=== PATIENT | female | born 1990 | race Caucasian/White ===

== ENCOUNTER 2023-02-07 14:10 | Outpatient (REF) | payer MEDICAID, SELFPAY ==
[2023-02-07 16:11] LABS: MANUAL DIFF FLAG NO
[2023-02-07 16:22] LABS: Basophils Percent Auto 0.6 % (0-2); Eosinophils Absolute Auto 0.2 X10*3/uL (0.0-0.4); Hematocrit 35.7 % (37.0-47.0); Hemoglobin 11.6 g/dl (12.0-16.0); Imm Gran Abs Auto 0.02 X10*3/uL (0.00-0.03); Imm Gran Pct Auto 0.3 % (0.0-0.4); Lymphocytes Absolute Auto 2.2 X10*3/uL (1.2-4.9); Lymphocytes Percent Auto 31.8 % (20-40); Mean Corpuscular HGB Conc 32.5 g/dl (31.0-35.0); Mean Corpuscular Hemoglobin 27.8 pg (27.0-33.0); Mean Corpuscular Volume 85.6 fL (80.0-98.0); Mean Platelet Volume 11.4 fL (9.4-12.3); Monocytes Absolute Auto 0.6 X10*3/uL (0.1-1.2); Monocytes Percent Auto 8.6 % (2-11); Neutrophils Absolute Auto 3.9 x10*3/uL (2.0-8.3); Neutrophils Percent Auto 55.7 % (45-73); Platelet Count 289 X10*3/uL (160-400); Red Blood Count 4.17 X10*6/uL (4.20-5.50); Red Cell Distribution Width 12.8 % (11.0-16.0); White Blood Count 6.9 X10*3/uL (4.8-10.8)
[2023-02-07 17:07] LABS: Estimated Average Glucose 100 mg/dL; Hemoglobin A1c % 5.1 %
[2023-02-07 17:22] LABS: Alanine Aminotransferase 21 U/L (0-31); Albumin Level 4.1 g/dL (3.5-5.0); Alkaline Phosphatase 52 U/L (39-117); Anion Gap 16 (12-20); Aspartate Amino Transferase 17 U/L (5-31); Bilirubin Direct 0.1 mg/dL (0.0-0.5); Bilirubin Total 0.3 mg/dL (0.0-1.0); Blood Urea Nitrogen 17 mg/dL (9-16); Calcium 9.1 mg/dL (8.4-10.2); Carbon Dioxide 22 mmol/L (22-29); Chloride 105 mmol/L (96-108); Cholesterol 234 mg/dL; Estimated Glomerular Filt Rate > 60; Glucose Random 87 mg/dL (60-115); HDL Cholesterol 46 mg/dL; LDL Cholesterol Calculated 148 mg/dl; Potassium 3.6 mmol/L (3.3-5.1); Sodium 139 mmol/L (135-145); Total Protein 7.7 g/dL (6.5-8.0); Triglycerides 202 mg/dL
[2023-02-08 08:52] LABS: ~Hepatitis C Antibody Nonreactive (Nonreactive)
[2023-02-08 08:54] LABS: HIV AB/AG Nonreactive (Nonreactive); HIV Num 1 0.05 S/CO (0.00-0.99)
[2023-02-09 06:24] LABS: HCG Tumor Marker <5 mIU/mL
== END 2023-02-07 14:11 | disposition home or self-care (01) ==
LOC: HO.HHCL 14:10
PROVIDERS: Visit Provider Internal Medicine
DX: Z00.00 Encounter for general adult medical examination without abnormal findings (principal); Z11.4 Encounter for screening for human immunodeficiency virus [HIV]; R11.0 Nausea
CPT/HCPCS: 36415; 80048; 80061; 80076; 83036; 84702; 85025; 86803; 87389

== ENCOUNTER 2023-03-21 12:54 | Outpatient (REF) | payer MEDICAID, SELFPAY ==
--- NOTE | ~2023-03-21 | US_ITS ---
EXAMINATION: US DIAGNOSTIC ULTRASOUND BREAST, RIGHT CLINICAL INFORMATION: 32-year-old female patient, , complaining of tiny skin lesion right breast measuring 5 mm x 1 month at the 9:00 axis, 7 cm from the nipple.. COMPARISON: None available. TECHNIQUE: Ultrasound of the breast is performed with real-time lara scale imaging and color Doppler. Attention was given to the 9:00 axis in the region of patient concern. FINDINGS: There is no focal suspicious finding. There is no solid mass, architectural abnormality, duct ectasia, or edema in the soft tissue planes. There is a tiny 4 mm focus of hypoattenuation within the skin at the 9:00 axis, 7 cm from the nipple. This is consistent with a dermal abnormality. Results were discussed with the patient at time of visit. US/US breast RT limited mamm only IMPRESSION: No findings suspicious for malignancy right breast. Dermal lesion right skin 9:00 axis correlating to right breast lesion of concern. Recommend clinical management. ASSESSMENT: BI-RADS 2: Benign RECOMMENDATION: 1. Patient should be managed based on the clinical impression. 2. Otherwise, routine annual screening mammography at age 39.
== END 2023-03-21 12:55 | disposition home or self-care (01) ==
LOC: HO.MAMMO 12:54
PROVIDERS: PCP Internal Medicine; Visit Provider Internal Medicine
DX: N64.9 Disorder of breast, unspecified (principal)
CPT/HCPCS: 76642

== ENCOUNTER → 2023-03-21 13:30 | Outpatient (BNV) | payer MEDICAID, SELFPAY | PROVIDERS: PCP Internal Medicine; Visit Provider Radiology Diagnostic Radiology | DX: N64.59 Other signs and symptoms in breast (principal); Z33.1 Pregnant state, incidental | CPT/HCPCS: 76642 ==

== ENCOUNTER 2024-04-24 14:57 | Outpatient (REF) | payer MEDICAID, SELFPAY ==
[2024-04-24 16:15] LABS: MANUAL DIFF FLAG NO
[2024-04-24 16:18] LABS: Basophils Percent Auto 0.6 % (0-2); Eosinophils Absolute Auto 0.3 X10*3/uL (0.0-0.4); Eosinophils Percent Auto 4.1 % (0-4); Hematocrit 38.5 % (37.0-47.0); Hemoglobin 13.2 g/dl (12.0-16.0); Imm Gran Abs Auto 0.02 X10*3/uL (0.00-0.03); Imm Gran Pct Auto 0.3 % (0.0-0.4); Lymphocytes Percent Auto 28.1 % (20-40); Mean Corpuscular HGB Conc 34.3 g/dl (31.0-35.0); Mean Corpuscular Hemoglobin 29.1 pg (27.0-33.0); Mean Corpuscular Volume 84.8 fL (80.0-98.0); Mean Platelet Volume 10.9 fL (9.4-12.3); Monocytes Absolute Auto 0.5 X10*3/uL (0.1-1.2); Monocytes Percent Auto 7.3 % (2-11); Neutrophils Absolute Auto 4.2 x10*3/uL (2.0-8.3); Neutrophils Percent Auto 59.6 % (45-73); Platelet Count 353 X10*3/uL (160-400); Red Blood Count 4.54 X10*6/uL (4.20-5.50); Red Cell Distribution Width 11.9 % (11.0-16.0)
[2024-04-24 16:30] LABS: Estimated Average Glucose 100 mg/dL; Hemoglobin A1C 107.6474 umol/L; Hemoglobin A1c % 5.1 % (<6.0); Total Hemoglobin (HGBA1C) 3357.2263 umol/L
[2024-04-24 16:37] LABS: Alanine Aminotransferase 27 U/L (0-31); Alkaline Phosphatase 68 U/L (39-117); Anion Gap 10 (12-20); Aspartate Amino Transferase 26 U/L (5-31); Bilirubin Total 0.5 mg/dL (0.0-1.0); Blood Urea Nitrogen 12 mg/dL (9-16); Calcium 9.7 mg/dL (8.4-10.2); Carbon Dioxide 28 mmol/L (22-29); Chloride 105 mmol/L (96-108); Cholesterol 266 mg/dL (<200); Estimated Glomerular Filt Rate > 60; Glucose Random 77 mg/dL (60-115); HDL Cholesterol 54 mg/dL (>40); LDL Cholesterol Calculated 136 mg/dL (<100); Potassium 3.4 mmol/L (3.3-5.1); Sodium 140 mmol/L (135-145); Total Protein 7.7 g/dL (6.5-8.0); Triglycerides 382 mg/dL (<150)
[2024-04-24 16:55] LABS: TSH reflex Free T4 0.82 uIU/mL (0.32-4.0); Vitamin D 25-OH Total 23.4 ng/mL (>30)
[2024-04-25 04:20] LABS: HIV AB/AG Nonreactive (Nonreactive); HIV Num 1 0.05 S/CO (0.00-0.99); ~HepC Num1 0.14 S/CO (0.00-0.79); ~Hepatitis C Antibody Nonreactive (Nonreactive)
== END 2024-04-24 14:58 | disposition home or self-care (01) ==
LOC: HO.HHCL 14:57
PROVIDERS: Visit Provider Internal Medicine
DX: Z00.00 Encounter for general adult medical examination without abnormal findings (principal)
CPT/HCPCS: 36415; 80053; 80061; 82306; 83036; 84443; 85025; 86803; 87389

== ENCOUNTER 2024-05-04 11:05 | Outpatient (REF) | payer MEDICAID, SELFPAY | END 2024-05-04 11:06 | disposition home or self-care (01) | LOC: HO.US 11:05 | PROVIDERS: PCP Internal Medicine; Visit Provider Internal Medicine | DX: R13.10 Dysphagia, unspecified (principal); E04.9 Nontoxic goiter, unspecified | CPT/HCPCS: 76536 ==

== ENCOUNTER 2025-05-10 11:16 | Outpatient (REF) | payer MEDICAID, SELFPAY ==
--- OUTSIDE RECORDS SUMMARY | 2025-05-07 14:00 | XMS_ITS | Encounter Summary ---
Author Organization [employer] [facility] Address [address] [place] [phone] Care Team Providers Care Fireman Helper Name Role Phone Tiffanie Smart MD Primary Care Provide r Reason for Referral * Imaging (Routine) - Authorized Specialty Diagnoses / Procedures Referred By Contac t Referred To Contact Radiology Diagnoses Pelvic pain Procedures US Pelvis Transvaginal Tiffanie Smart MD [address] [place] [phone] Phone: tel: fax: [address] Phone: tel: fax: Referral ID Status Reason Start Date Expiration Date V isits Requested Visits Authorized [id number] Authorized 05/07/2025 05/07/2026 1 1 * Imaging (Routine) - Authorized Specialty Diagnoses / Procedures Referred By Contac t Referred To Contact Radiology Diagnoses Pelvic pain Procedures Us Pelvis complete Tiffanie Smart MD [address] [place] [address] Phone: tel: fax: [address] Phone: tel: fax: Referral ID Status Reason Start Date Expiration Date V isits Requested Visits Authorized [id number] Authorized 05/07/2025 05/07/2026 1 1 * Consultation (Routine) - Authorized Specialty Diagnoses / Procedures Referred By Oksana ayoub Referred To Contact Urology Diagnoses Stress incontinence Tiffanie Smart MD [address] [place] [address] Phone: tel: fax: [facility] [address] [place], [place] Phone: tel: fax: Referral ID Status Reason Start Date Expiration Date Visits Requested Visits Authorized [id number] Authorized Specialty Services Required 05/07/2026 6 6 Encounter Details Date Type Department Care Team (Late st Contact Info) Description 05/07/2025 2:00 PM EDT Office Visit [facility] [address] [place] [address] Tiffanie Smart MD [address] [place], [place] [phone] Hair loss (Primary Dx); Stress incontinence; Encounter for preventive care; Pelvic pain Social History Tobacco Use Types Packs/Day Years Used Date Smoking Tobacco: Never Passive Smoke Exposure: Never Smokeless Tobacco: Never Alcohol Use Standard Drinks/Week Comments Never 0 (1 standard drink = 0.6 oz pur e alcohol) Depression Answer Date Recorded Patient Health Questionnaire-9 Score 0 05/07/2025 Patient Health Questionnaire-9 Score 0 05/07/2025 Last PHQ-9: Questionnaire Data Not on file 1 Housing Stability Answer Date Recorded What is your housing situation today? I have dario mcelroy 04/30/[address] you li ve. Do you have problems with any of the following? None of the above 04/30/2025 Food Insecurity Answer Date Recorded Within the past 12 months, y ou worried that your food would run out before you got money to buy more: Never True 04/30/2025 Within the past 12 months,th e food you bought just didn't last and you didn't have enough money to get more: Never True Transportation Answer Date Recorded In the past 12 months, has l ack of transportation kept you from medical appts, meetings, work or from getting things needed for daily living? No 04/30/2025 Utilities Answer Date Recorded In the past 12 months, has t he electric, gas, oil or water company threatened to shut off services in your home? No 04/30/2025 Depression Answer Date Recorded Patient Health Questionnaire-2 Score 0 05/07/2025 Internet Access Answer Date Recorded Internet Access Q1 Yes 04/30/2025 Internet Access Q2 Not on file 04/30/2025 Comments No Sex and Gender Information Value Date Recorded Sex Assigned at Female 05/14/2022 10:15 AM EDT Legal Sex Female 10:15 AM EDT Gender Identity Female 05/14/2022 10:15 AM EDT Sexual Orientation Straight 05/14/2022 10 :15 AM EDT documented as of this encounter Last Filed Vital Signs Vital Sign Reading Time Taken Comments Blood Pressure 116/80 05/07/2025 1:56 PM EDT Pulse 73 05/07/2025 1:56 PM EDT Temperature 34.5 C (94.1 F) 05/07/2025 1:56 PM EDT Respiratory Rate 22 05/07/2025 1:56 PM EDT Oxygen Saturation 93% 05/07/2025 1:56 PM EDT Inhaled Oxygen Concentration - - Weight 67.1 kg (148 lb) 05/07/2025 1:56 PM EDT Height 162.6 cm (5' 4 ) 05/07/2025 1:56 PM EDT Body Mass Index 25.4 05/07/2025 1:56 PM EDT documented in this encounter Functional Status * Over the past 2 weeks, how often have you been bothered by any of the following problems? Question Answer Date of Assessment Author Patient Health Questionnaire-2 Score 0 04/15 2:57 PM EDT Shana Sanchez MA * Little interest or pleasure in doing things Answer Date of Assessment Author Not at all 05/07/2025 2:57 PM EDT Ashwin Sanchez ra, [place] * Feeling down, depressed, or hopeless Answer Date of Assessment Author Not at all 05/07/2025 2:57 PM EDT Ashwin Sanchez ra, [place] * Trouble falling or staying asleep, or sleeping too much Answer Date of Assessment Author Not at all 05/07/2025 2:57 PM EDT Ashwin Sanchez ra, [place] * Feeling tired or having little energy Answer Date of Assessment Author Not at all 05/07/2025 2:57 PM EDT Ashwin Sanchez ra, [place] * Poor appetite or overeating Answer Date of Assessment Author Not at all 05/07/2025 2:57 PM EDT Ashwin Sanchez ra, [place] * Feeling bad about yourself - or that you are a failure or have let yourself or your family down Answer Date of Assessment Author Not at all 05/07/2025 2:57 PM EDT Ashwin Sanchez ra, [place] * Trouble concentrating on things, such as reading the newspaper or watching television Answer Date of Assessment Author Not at all 05/07/2025 2:57 PM EDT Ashwin Sanchez ra, [place] * Moving or speaking so slowly that other people could have noticed? Or the opposite - being so fidgety or restless that you have been moving around a lot more than usual. Answer Date of Assessment Author Not at all 05/07/2025 2:57 PM EDT Ashwin Sanchez ra, [place] * Thoughts that you would be better off or hurting yourself in some way Answer Date of Assessment Author Not at all 05/07/2025 2:57 PM EDT Ashwin Sanchez ra, [place] * Patient Health Questionnaire-9 Score Answer Date of Assessment Author 0 05/07/2025 2:57 PM EDT Ashwin Sanchez ra, [place] * Over the last 2 weeks, how often have you been bothered by any of the following problems? Question Answer Date of Assessment Author Feeling nervous, anxious, or on edge 0 04/15 2:58 PM EDT Shana Sanchez MA Not being able to stop or co ntrol worrying 0 05/07/2025 2:58 PM EDT Shana Sanchez MA Worrying too much about diff erent things 0 05/07/2025 2:58 PM EDT Shana Sanchez MA Trouble relaxing 0 05/07/2025 2:58 PM EDT H Shana ma MA Being so restless that it is hard to sit still 0 05/07/2025 2:58 PM EDT Shana Sanchez MA Becoming easily annoyed or irritable 0 04/15 2:58 PM EDT Shana Sanchez MA Feeling afraid as if somethi ng awful might happen 0 05/07/2025 2:58 PM EDT Shana Sanchez MA KARLOS-7 Total Score 0 05/07/2025 2:58 PM EDT Shana Sanchez MA documented as of this encounter Progress Notes * Tiffanie Johnson MD - 05/07/2025 2:00 PM EDT SUBJECTIVE: Kavon Wild is a 35 y.o. year old female who presents for Physical . Occupation:at home Lives with:kids and partner Social Hx: denies drinking EtOH, denies smoking cigarettes and denies recreational drug use. Diet:regular Exercise:sedentary LMP:04/16/25 Pap Smear:due on 04/19/2028 Hospitalizations/Surgeries: tubal ligation 11/2023, appendectomy, liposuction Eye Care:up to date Dental Care:up to date PMHx:on chart Immunizations: Reviewed Acute Concerns: Stress incontinence Hair loss Kavon Wild, 35 years Stress Urinary Incontinence - Reports involuntary urine leakage when sneezing, coughing, laughing, or exerting force - Current symptoms present at time of encounter - No mention of prior treatment, but purchased Kegel exercise balls and has not used them Dyspareunia - Reports significant lower pelvic pain during sexual intercourse - Pain localized to lower pelvis - No pain outside of intercourse Alopecia - Reports excessive hair loss, hair breakage, and thinning - Noted short, broken hair strands - Has tried various products to promote hair growth and strengthening without improvement - Last childbirth was 1 year and 6 months prior to encounter Misc - Denies changes in menstruation; reports regular cycles without pain or clots - Dental care up to date, attends monthly appointments for braces - Last Pap smear up to date, next due April 19, 2028 Social History Social History Narrative Not on file Problem List[1] Vitamin D deficiency Snoring Tonsillitis Vaginal discharge Palpitations Overweight Lower urinary tract symptoms Incontinence of feces Chronic diarrhea Bacteriuria Gastroesophageal reflux disease without esophagitis Encounter for preventative adult health care examination Nausea Lesion of breast Encounter for preventive care Hypersomnia Swallowing problem Enlarged thyroid Nevus of Director Decision Support Acute appendicitis Colitis COVID-19 affecting , antepartum Fibroadenoma of breast Hemorrhoid History of varicella Rubella non-immune status, antepartum Gastroesophageal reflux disease Stress incontinence Hair loss Family History[2] Review of Systems Constitutional: Negative. HENT: Negative. Respiratory: Negative. Cardiovascular: Negative. Genitourinary: Positive for enuresis and pelvic pain. OBJECTIVE: Vitals: 05/07/25 1356 BP: 116/80 BP Location: Left arm Patient Position: Sitting BP Cuff Size: Adult Pulse: 73 Resp: 22 Temp: 94.1 ??F (34.5 ??C) TempSrc: Temporal SpO2: 93% Weight: 148 lb (67.1 kg) Height: 5' 4 (1.626 m) Physical Exam Constitutional: Appearance: Normal appearance. Cardiovascular: Rate and Rhythm: Normal rate and regular rhythm. Pulmonary: Effort: Pulmonary effort is normal. Breath sounds: Normal breath sounds. Abdominal: General: Abdomen is flat. Palpations: Abdomen is soft. Tenderness: There is abdominal tenderness in the suprapubic area. Musculoskeletal: Right lower leg: No edema. Left lower leg: No edema. Neurological: Mental Status: She is alert. Follow Up: No follow-ups on file. Medications Ordered Prior to Encounter[3] Problem List Items Addressed This Visit Stress incontinence Relevant Orders Referral to Urology Hair loss - Primary Relevant Orders TSH with Reflex to Free T4 Encounter for preventive care Relevant Orders CBC auto differential Comprehensive Metabolic Panel Hemoglobin A1c HIV-1/2 Antigen and Antibodies, Fourth Generation, with Reflexes Hepatitis C Antibody with Reflex to HCV, RNA, Quantitative, Real-Time PCR Lipid Panel, Standard Vitamin D, 25-Hydroxy, Total, Immunoassay Stress incontinence: - Stress incontinence diagnosed, characterized by involuntary urine leakage with coughing, sneezing, or exertion. - Provided information on Kegel exercises. Referred to urology for further evaluation. Ordered pelvic ultrasound. Hair loss: - Hair loss noted, possible association with thyroid dysfunction considered. - Will check thyroid panel. Referred to dermatology for evaluation of alopecia. Encounter for preventive care: - Preventive care addressed, including review of vaccinations and screening tests. - Discussed need for influenza and tetanus vaccines. Reviewed Pap smear schedule; next due April 19, 2028. Discussed mammography initiation at age 39. Pelvic pain: - Pelvic pain reported, associated with sexual intercourse. - Referred to urology for evaluation. Ordered pelvic ultrasound. This note was drafted using Ambient (AI) technology. The patient/patient's guardian has been informed and has consented to the use of this technology: Yes [1] Patient Active Problem List Diagnosis Vitamin D deficiency Snoring Tonsillitis Vaginal discharge Palpitations Overweight Lower urinary tract symptoms Incontinence of feces Chronic diarrhea Bacteriuria Gastroesophageal reflux disease without esophagitis Encounter for preventative adult health care examination Nausea Lesion of breast Encounter for preventive care Hypersomnia Swallowing problem Enlarged thyroid Nevus of Codie Acute appendicitis Colitis COVID-19 affecting , antepartum Fibroadenoma of breast Hemorrhoid History of varicella Rubella non-immune status, antepartum Gastroesophageal reflux disease Stress incontinence Hair loss [2] No family history on file. [3] Current Outpatient Medications on File Prior to Visit Medication Sig Dispense Refill omeprazole (PriLOSEC) [address] capsule TAKE 1 CAPSULE BY MOUTH EVERY DAY BEFORE A MEAL 90 capsule 1 pyridoxine (Vitamin B-6) 25 MG tablet TAKE 1 TABLET BY MOUTH DAILY EVERY 6 HOURS NEEDED FOR NAUSEA AND VOMITING 360 tablet 1 No current facility-administered medications on file prior to visit. documented in this encounter Plan of Treatment Upcoming Encounters Date Type Department Care Team (Late st Contact Info) Description 07/07/2025 3:15 PM EST Telemedicine [facility] [address] [place] [address] Tiffanie Smart MD [address] [place] [address] Scheduled Orders Name Type Priority Associated Diagnoses Orde r Schedule HIV-1/2 Antigen and Antibodies, Fourth Generation, with Reflexes Lab Routine Encounter for preventive care Expected: 05/07/2025 (Approximate), Expires: 05/07/2026 Hepatitis C Antibody with Reflex to HCV, RNA, Quantitative, Real-Time PCR Lab Routine Encounter for preventive care Expected: 05/07/2025, Expires: 05/07/2026 Us Pelvis complete Imaging Routine Pelvic pain Expected: 05/07/2025, Expires: 05/07/2026 US Pelvis Transvaginal Imaging Routine Pelvic pain Expected: 05/07/2025, Expires: 05/07/2026 Scheduled Referrals Name Type Priority Associated Diagnoses Orde r Schedule Referral to Urology Outpatient Referral Routine Stress incontinence Expected: 05/07/2025 (Approximate), Expires: 05/07/2026 documented as of this encounter Procedures Procedure Name Priority Date/Time Associated Diagnosis Comments VITAMIN D,25-OH,TOTAL,IA Routine 05/10/2025 11:20 AM EDT Encounter for preventive care TSH W/REFLEX TO FT4 Routine 05/10/2025 1 1:20 AM EDT Hair loss CBC WITH AUTO DIFFERENTIAL Routine 05/10/2025 11:20 AM EDT Encounter for preventive care HEMOGLOBIN A1C Routine 05/10/2025 11:20 AM EDT Encounter for preventive care LIPID PANEL, STANDARD Routine 05/10/2025 11:20 AM EDT Encounter for preventive care COMPREHENSIVE METABOLIC PANEL Routine 05/10/2025 11:20 AM EDT Encounter for preventive care documented in this encounter Results * TSH with Reflex to Free T4 (05/10/2025 11:20 AM EDT) TSH reflex Free T4 1.51 0.32 - 4.0 uIU/mL [facility] Blood Venous blood specimen / Unknown 05/10/2025 11:20 AM EDT 05/10/2025 1:26 PM EDT us Tiffanie Johnson MD LAB BLOOD ORDERABLES Final Result [facility] [address] [place], [place] [phone] * (ABNORMAL) Vitamin D, 25-Hydroxy, Total, Immunoassay (05/10/2025 11:20 AM EDT) Vitamin D 25-OH Total 19.6(L) >30 ng/mL [facility] Comment: Health Based Reference Values*< 20 ng/mL Mnfmhzzoh60-63 ng/mL Insufficient> 30 ng/mL Sufficient*Kana WRIGHT. N Engl J Med. 2007;357:266-280There is no well-established upper level of normal vitamin Dlevels. Some laboratories use 50 ng/mL as an upper limit ofnormal. However, toxicity is patient-dependent and may occurat any level. Careful correlation with the patient'spresentation is necessary and, if there is concern forvitamin D toxicity, treatment should be consideredirrespective of the serum level.Care must be taken in interpreting Vitamin D results fromdifferent laboratories and methodologies. Published datademonstrated that results from patients undergoinghemodialysis may show a negative bias when tested withvarious automated 25-OH vitamin D assays when compared toLC-MS/MS.When testing samples from patients whose predominant form ofVitamin D is Vitamin D2, such as patients receiving VitaminD2 supplementation, results that are subtherapeutic shouldbe confirmed with another method such as LC-MS/MS. Blood Venous blood specimen / Unknown 05/10/2025 11:20 AM EDT 05/10/2025 1:26 PM EDT Tiffanie Johnson MD LAB BLOOD ORDERABLES Final Result [facility] [address] [place] [phone] * (ABNORMAL) Lipid Panel, Standard (05/10/2025 11:20 AM EDT) Triglycerides 264(H) <150 mg/dL [facility] Comment:Desirable Triglyceri de: less than 150 mg/dLBorderline High Triglyceride 150-199 mg/dLHigh Triglyceride: 200-499 mg/dLVery High Triglyceride: greater than or equal to 5OO mg/dL Cholesterol 230(H) <200 mg/dL [facility] Comment:Desirable Cholestero l: less than 200 mg/dLBorderline High Cholesterol: 200-239 mg/dLHigh Cholesterol: greater than 239 mg/dL LDL Cholesterol Calculated 131(H) <100 mg/dL [facility] Comment:Desirable LDL: less than 100 mg/dLNear Optimal/Above Optimal LDL: 110- 129 mg/dLBorderline High LDL: 130-159 mg/dLHigh LDL: 160-189 mg/dLVery High LDL: greater than or equal to 190 mg/dL HDL Cholesterol 47 >40 mg/dL [facility] Comment:Desirable HDL: great er than 40 mg/dL Note: This HDL assay may give artificially low results in patients with liver disease. Blood Venous blood specimen / Unknown 05/10/2025 11:20 AM EDT 05/10/2025 1:26 PM EDT us Tiffanie Johnson MD LAB BLOOD ORDERABLES Final Result [facility] [address] [place] [phone] * Hemoglobin A1c (05/10/2025 11:20 AM EDT) Hemoglobin A1c 5.5 <6.0 % [facility] Comment:Hemoglobin A1C Refer ence Range Adults: 4.8 - 6.0 % Non diabetic: < 6.0 % Goal: < 7.0 %Additional Action Suggested: > 8.0 %Note: Hemoglobin A1c results are invalid for patients with abnormal amounts of HbF. Blood transfusions may impact the HbA1c concentration in the patient sample. Estimated Average Glucose 111 mg/dL [facility] Comment:eAG = Estimated ave rage glucose which is %A1C expressed asaverage glucose, using the formula of the G0Z-[id number] Glucose study (ADAG), Diabetes Care, Vol.31,#8,Feb. 2007 Blood Venous blood specimen / Unknown 05/10/2025 11:20 AM EDT 05/10/2025 1:24 PM EDT us Tiffanie Johnson MD LAB BLOOD ORDERABLES Final Result [facility] [address] [place] [phone] * (ABNORMAL) Comprehensive Metabolic Panel (05/10/2025 11:20 AM EDT) Sodium 139 135 - 145 mmol/L [facility] Potassium 3.6 3.3 - 5.1 mmol/L [facility] Chloride 108 96 - 108 mmol/L [facility] Carbon Dioxide 24 22 - 29 mmol/L [facility] Anion Gap 11(L) 12 - 20 [facility] Urea Nitrogen (BUN) 11 9 - 16 mg/dL [facility] Creatinine, Serum 0.56 0.5 - 1.4 mg/dL [facility] Estimated Glomerular Filt Rate >60 [facility] Comment:Chronic Kidney Disea se: Estimated GFR < 60 mL/min/[id number] Kidney Disease: Estimated GFR < 15 mL/min/1.73m2 Glucose 84 60 - 115 mg/dL [facility] Calcium 8.6 8.4 - 10.2 mg/dL [facility] Bilirubin, Total 0.5 0.0 - 1.0 mg/dL [facility] Aspartate Amino Transferase 23 5 - 31 U/L [facility] Alanine Aminotransferase 19 0 - 31 U/L [facility] Total Protein 7.1 6.5 - 8.0 g/dL [facility] Albumin Level 3.8 3.5 - 5.0 g/dL [facility] Alkaline Phosphatase 58 39 - 117 U/L [facility] Blood Venous blood specimen / Unknown 05/10/2025 11:20 AM EDT 05/10/2025 1:26 PM EDT us Tiffanie Johnson MD LAB BLOOD ORDERABLES Final Result Performing Organization Address City/[facility]/ZIP Co de Phone Number [facility] [address] [place] [phone] * (ABNORMAL) CBC auto differential (05/10/2025 11:20 AM EDT) White Blood Count 6.0 4.8 - 10.8 X10*3/uL [facility] Red Blood Count 4.41 4.20 - 5.50 X10*6/uL [facility] Hemoglobin 11.8(L) 12.0 - 16.0 g/dl [facility] Hematocrit 36.6(L) 37.0 - 47.0 % [facility] Mean Corpuscular Volume 83.0 80.0 - 98.0 fL [facility] Mean Corpuscular Hemoglobin 26.8(L) 27.0 - 33.0 pg [facility] Mean Corpuscular HGB Conc 32.2 31.0 - 35.0 g/dl [facility] Red Cell Distribution Width 13.2 11.0 - 16.0 % [facility] Platelet Count 308 160 - 400 X10*3/uL [facility] Mean Platelet Volume 11.1 9.4 - 12.3 fL [facility] Neutrophils Percent Auto 47.9 45 - 73 % [facility] Imm Gran Pct Auto 0.2 0.0 - 0.4 % [facility] Lymphocytes Percent Auto 38.1 20 - 40 % [facility] Monocytes Percent Auto 7.0 2 - 11 % [facility] Eosinophils Percent Auto 6.3(H) 0 - 4 % [facility] Basophils Percent Auto 0.5 0 - 2 % [facility] NRBC Pct Auto 0.0 0.0 - 0.2 /100WBC [facility] Neutrophils Absolute Auto 2.9 2.0 - 8.3 x10*3/uL [facility] Imm Gran Abs Auto 0.01 0.00 - 0.03 X10*3/uL [facility] Lymphocytes Absolute Auto 2.3 1.2 - 4.9 X10*3/uL [facility] Monocytes Absolute Auto 0.4 0.1 - 1.2 X10*3/uL [facility] Eosinophils Absolute Auto 0.4 0.0 - 0.4 X10*3/uL [facility] Basophils Absolute Auto 0.0 0.0 - 0.2 X10*3/uL [facility] NRBC Abs Auto 0.000 0.0 - 0.012 X10*3/uL [facility] Blood Venous blood specimen / Unknown 05/10/2025 11:20 AM EDT 05/10/2025 1:24 PM EDT us Tiffanie Johnson MD LAB BLOOD ORDERABLES Final Result Performing Organization Address City/State/[facility] Co de Phone Number [facility] [address] [place] [address] [phone] documented in this encounter Visit Diagnoses Diagnosis Hair loss- Primary Unspecified alopecia Stress incontinence Female stress incontinence Encounter for preventive care Pelvic pain documented in this encounter Additional Health Concerns Assessment Noted Time PHQ-9 Depression Total Score: 0 05/07/20 25 2:57 PM EDT documented as of this encounter Care Teams Fireman Helper Relationship Specialty Start Date End Date Tiffanie Smart MD [address] [place] [address] PCP - General Family Medicine 11/17/18 documented as of this encounter
[2025-05-10 13:25] LABS: MANUAL DIFF FLAG NO
[2025-05-10 13:33] LABS: Hematocrit 36.6 % (37.0-47.0); Hemoglobin 11.8 g/dl (12.0-16.0); Imm Gran Abs Auto 0.01 X10*3/uL (0.00-0.03); Imm Gran Pct Auto 0.2 % (0.0-0.4); Lymphocytes Absolute Auto 2.3 X10*3/uL (1.2-4.9); Mean Corpuscular HGB Conc 32.2 g/dl (31.0-35.0); Mean Corpuscular Hemoglobin 26.8 pg (27.0-33.0); Mean Corpuscular Volume 83.0 fL (80.0-98.0); NRBC Abs Auto 0.000 X10*3/uL (0.0-0.012); NRBC Pct Auto 0.0 /100WBC (0.0-0.2); Platelet Count 308 X10*3/uL (160-400); Red Blood Count 4.41 X10*6/uL (4.20-5.50); White Blood Count 6.0 X10*3/uL (4.8-10.8)
[2025-05-10 14:13] LABS: Alanine Aminotransferase 19 U/L (0-31); Albumin Level 3.8 g/dL (3.5-5.0); Alkaline Phosphatase 58 U/L (39-117); Anion Gap 11 (12-20); Aspartate Amino Transferase 23 U/L (5-31); Blood Urea Nitrogen 11 mg/dL (9-16); Calcium 8.6 mg/dL (8.4-10.2); Carbon Dioxide 24 mmol/L (22-29); Chloride 108 mmol/L (96-108); Cholesterol 230 mg/dL (<200); Estimated Glomerular Filt Rate > 60; HDL Cholesterol 47 mg/dL (>40); Potassium 3.6 mmol/L (3.3-5.1); Sodium 139 mmol/L (135-145); Total Protein 7.1 g/dL (6.5-8.0); Triglycerides 264 mg/dL (<150)
--- OUTSIDE RECORDS SUMMARY | 2025-05-10 14:23 | XMS_ITS | Clinical Summary ---
Author Organization [employer] Address [address] [place] [address] 7 [place] [address] Care Team Providers Care Breakfast Server Name Role Phone Tiffanie Smart MD Primary Care Provide r Allergies No known active allergies Medications omeprazole (PriLOSEC) [address] Hurley ons:Heartburn TAKE 1 CAPSULE BY MOUTH EVERY DAY BEFORE A MEAL 90 capsule 1 10/17/2022 Active pyridoxine (Vitamin B-6) 25 MG tablet TAKE 1 TABLET BY MOUTH DAILY EVERY 6 HOURS NEEDED FOR NAUSEA AND VOMITING 360 tablet 1 05/15/2023 Active Active Problems Problem Noted Date Diagnosed Date Acute appendicitis 05/07/2025 Colitis 05/07/2025 COVID-19 affecting , antepartum 025 Fibroadenoma of breast 05/07/2025 Hemorrhoid 05/07/2025 History of varicella 05/07/2025 Rubella non-immune status, antepartum 05/07/2025 Gastroesophageal reflux disease 05/07/2025 Stress incontinence 05/07/2025 Hair loss 05/07/2025 Pelvic pain 05/07/2025 Nevus of Recycling Tech 07/29/2024 Encounter for preventive care 04/24/2024 Hypersomnia 04/24/2024 Swallowing problem 04/24/2024 Enlarged thyroid 04/24/2024 Lesion of breast 03/01/2023 Assessment & Plan (03/01/2023 12:32 PM EDT): Needs breast US, will avoid mammogran 2/2 Recommended avoid manipulation of breast FU w/ PCP as scheduled Encounter for preventative adult health care exa mination 02/07/2023 Assessment & Plan (02/07/2023 1:59 PM EDT): Please refer to HPI Nausea 02/07/2023 Vitamin D deficiency 02/04/2023 Snoring 02/04/2023 Tonsillitis 02/04/2023 Overweight 02/04/2023 Lower urinary tract symptoms 02/04/2023 Incontinence of feces 02/04/2023 Chronic diarrhea 02/04/2023 Gastroesophageal reflux disease without esophagi tis 02/04/2023 Vaginal discharge 11/17/2018 Palpitations 11/17/2018 Bacteriuria 11/17/2018 Resolved Problems Problem Noted Date Diagnosed Date Resolved Date Visual disturbance 04/24/2024 Encounters Date Type Department Care Team Description 05/07/2025 2:00 PM EDT Office Visit [facility] [address] [place] [phone] Tiffanie Smart MD Hair loss (Primary Dx); Stress incontinence; Encounter for preventive care; Pelvic pain 05/07/2025 Travel 05/06/2025 Telephone [facility] [address] [place] [address] Tiffaine Smart MD Chart Prep 04/30/2025 Patient Outreach [facility] [address] [place], [place] [phone] Tiffanie Smart MD Pre-visit Planning (SDOH negative, Tobacco screening negative. ) from Last 3 Months Immunizations Immunization Administration Dates Next Due Influenza injectable quadrivalent preservative f ree 07/23/2018 Social History Tobacco Use Types Packs/Day Years Used Date Smoking Tobacco: Never Passive Smoke Exposure: Never Smokeless Tobacco: Never Tobacco Cessation:Counseling Given: Not Answered Alcohol Use Standard Drinks/Week Comments Never 0 [...] Orientation Straight 05/14/2022 10 :15 AM EDT Last Filed Vital Signs Vital Sign Reading [...] Mass Index 25.4 05/07/2025 1:56 PM EDT Plan of Treatment Upcoming Encounters Date Type Department Care Team (Late st Contact Info) Description 07/07/2025 3:15 PM EST Telemedicine [facility] [address] [place] [address] [phone] Tiffanie Smart MD [address] [place] [address] Health Maintenance Due Date Last Done Comments Disability Screening 1989 Family Planning (PISQ) 2004 HPV Vaccines (1 - 3-dose series) 2004 DTaP/Tdap/Td Vaccines (1 - Tdap) 2008 Hepatitis B Vaccines (1 of 3 - 19+ 3-dose series) 2008 COVID-19 Vaccine (1 - 2023- season) 2025 Influenza Vaccine (#1) 2025 07/23/2018 SDOH Screening 04/30/2026 04/30/2025 Alcohol/Substance Use Screening 05/07/2026 05/07/2025 Depression Screening 05/07/2026 05/07/2025, 05/07/20 Tobacco Screening 05/07/2026 05/07/2025 Cervical Cancer Screening 04/19/2028 HPV/Cotest 04/19/2028 04/19/2023, 04/29/2019 Pap Smear 04/19/2028 04/19/2023 Zoster Vaccines (1 of 2) 2039 RSV Patients and Patients Aged 60 years or older (1 - 1-dose 75+ series) 2064 HIV Screening Completed 04/24/2024, 01/13, 10/27/2021, Additional history exists Hepatitis C Screening Completed 04/24/2024 , 02/07/2023, 05/10/2021 HIB Vaccines Aged Out No longer eligi ble based on patient's age to complete this topic Hepatitis A Vaccines Aged Out No long er eligible based on patient's age to complete this topic IPV Vaccines Aged Out No longer eligi ble based on patient's age to complete this topic Meningococcal B Vaccine Aged Out No l onger eligible based on patient's age to complete this topic Meningococcal Vaccine Aged Out No diann humphrey eligible based on patient's age to complete this topic Pneumococcal Vaccine: Pediatrics (0 to 5 Years) and At-Risk Patients (6 to 49) Years Aged Out No longer eligible based on patient's age to complete this topic RSV under 20 months Aged Out No longe r eligible based on patient's age to complete this topic Rotavirus Vaccines Aged Out No longer eligible based on patient's age to complete this topic Procedures Procedure Name Priority Date/Time Associated Diagnosis Comments TSH W/REFLEX TO FT4 Routine 05/10/2025 1 1:20 AM EDT Hair loss VITAMIN D,25-OH,TOTAL,IA Routine 05/10/2025 11:20 AM EDT Encounter for preventive care LIPID PANEL, STANDARD Routine 05/10/2025 11:20 AM EDT Encounter for preventive care HEMOGLOBIN A1C Routine 05/10/2025 11:20 AM EDT Encounter for preventive care COMPREHENSIVE METABOLIC PANEL Routine 05/10/2025 11:20 AM EDT Encounter for preventive care CBC WITH AUTO DIFFERENTIAL Routine 05/10/2025 11:20 AM EDT Encounter for preventive care HEPATITIS C AB W/REFL TO HCV RNA, QN, PCR Routine 04/24/2024 3:00 PM EDT Encounter for preventive care HIV 1/2 ANTIGEN/ANTIBODY, FOURTH GENERATION W/RFL Routine 04/24/2024 3:00 PM EDT Encounter for preventive care HM PAP/HPV Routine 04/19/2023 from Last 3 Months or Most Recently Relevant to Health Maintenance Results * (ABNORMAL) Vitamin D, 25-Hydroxy, Total, Immunoassay (05/10/2025 11:20 AM EDT) Vitamin D 25-OH Total 19.6(L) >30 ng/mL [facility] Comment: Health Based Reference Values*< 20 ng/mL Daxzecbej18-93 ng/mL Insufficient> 30 ng/mL Sufficient*Kana WRIGHT. N [...] BLOOD ORDERABLES Final Result Performing Organization Address [facility] Co de Phone Number [facility] [address] [place] [phone] * TSH with Reflex to Free T4 (05/10/2025 11:20 AM EDT) Pathologist [facility] TSH reflex Free T4 1.51 0.32 - 4.0 uIU/mL [facility] Blood Venous blood specimen / Unknown 05/10/2025 11:20 AM EDT 05/10/2025 1:26 PM EDT Tiffanie Johnson MD LAB BLOOD ORDERABLES Final Result Performing Organization Address [facility] Co de Phone Number [facility] [address] [place] [phone] * (ABNORMAL) CBC auto differential (05/10/2025 11:20 AM EDT) White Blood Count 6.0 4.8 - 10.8 X10*3/uL [facility] Red Blood Count 4.41 4.20 - 5.50 X10*6/uL [facility] Hemoglobin 11.8(L) 12.0 - 16.0 g/dl [facility] Hematocrit 36.6(L) 37.0 - 47.0 % [facility] Mean Corpuscular Volume 83.0 80.0 - 98.0 fL [facility] Mean Corpuscular Hemoglobin 26.8(L) 27.0 - 33.0 pg [facility] Mean Corpuscular HGB Conc 32.2 31.0 - 35.0 g/dl [facility] Red Cell Distribution Width 13.2 11.0 - 16.0 % [facility] Platelet Count 308 160 - 400 X10*3/uL [facility] Mean Platelet Volume 11.1 9.4 - 12.3 fL [facility] Neutrophils Percent Auto 47.9 45 - 73 % [facility] Imm Gran Pct Auto 0.2 0.0 - 0.4 % [facility] Lymphocytes Percent Auto 38.1 20 - 40 % [facility] Monocytes Percent Auto 7.0 2 - 11 % [facility] Eosinophils Percent Auto 6.3(H) 0 - 4 % [facility] Basophils Percent Auto 0.5 0 - 2 % [facility] NRBC Pct Auto 0.0 0.0 - 0.2 /100WBC [facility] Neutrophils Absolute Auto 2.9 2.0 - 8.3 x10*3/uL [facility] Imm Gran Abs Auto 0.01 0.00 - 0.03 X10*3/uL [facility] Lymphocytes Absolute Auto 2.3 1.2 - 4.9 X10*3/uL [facility] Monocytes Absolute Auto 0.4 0.1 - 1.2 X10*3/uL [facility] Eosinophils Absolute Auto 0.4 0.0 - 0.4 X10*3/uL [facility] Basophils Absolute Auto 0.0 0.0 - 0.2 X10*3/uL [facility] NRBC Abs Auto 0.000 0.0 - 0.012 X10*3/uL [facility] Blood Venous blood specimen / Unknown 05/10/2025 11:20 AM EDT 05/10/2025 1:24 PM EDT us Tiffanie Johnson MD LAB BLOOD ORDERABLES Final Result Performing Organization Address [facility] Co de Phone Number [facility] [address] [place] [phone] * Hemoglobin A1c (05/10/2025 11:20 AM EDT) Hemoglobin A1c 5.5 <6.0 % [facility] Comment:Hemoglobin A1C Refer ence Range Adults: 4.8 - 6.0 % Non diabetic: < 6.0 % Goal: < 7.0 %Additional Action Suggested: > 8.0 %Note: Hemoglobin A1c results are invalid for patients with abnormal amounts of HbF. Blood transfusions may impact the HbA1c concentration in the patient sample. Estimated Average Glucose 111 mg/dL [facility] Comment:eAG = Estimated ave rage glucose which is %A1C expressed asaverage glucose, using the formula of the J5U-QleziqjBbhlcjo Glucose study (ADAG), Diabetes Care, Vol.31,#8,2007 Blood Venous blood specimen / Unknown 05/10/2025 11:20 AM EDT 05/10/2025 1:24 PM EDT us Tiffanie Johnson MD LAB BLOOD ORDERABLES Final Result Performing Organization Address [facility] Co de Phone Number [facility] [address] [place] [phone] * (ABNORMAL) Lipid Panel, Standard (05/10/2025 11:20 AM EDT) Triglycerides 264(H) <150 mg/dL [facility] Comment:Desirable Triglyceri de: less than 150 mg/dLBorderline High Triglyceride 150-199 mg/dLHigh Triglyceride: 200-499 mg/dLVery High Triglyceride: greater than or equal to 5OO mg/dL Cholesterol 230(H) <200 mg/dL [facility] Comment:Desirable Cholestero l: less than 200 mg/dLBorderline High Cholesterol: 200-239 mg/dLHigh Cholesterol: greater than 239 mg/dL LDL Cholesterol Calculated 131(H) <100 mg/dL [facility] Comment:Desirable LDL: less than 100 mg/dLNear Optimal/Above Optimal LDL: 110- 129 mg/dLBorderline High LDL: 130-159 mg/dLHigh LDL: 160-189 mg/dLVery High LDL: greater than or equal to 190 mg/dL HDL Cholesterol 47 >40 mg/dL [facility] Comment:Desirable HDL: great er than 40 mg/dL Note: This HDL assay may give artificially low results in patients with liver disease. Blood Venous blood specimen / Unknown 05/10/2025 11:20 AM EDT 05/10/2025 1:26 PM EDT Tiffanie Johnson MD LAB BLOOD ORDERABLES Final Result [facility] [address] [place] [phone] * (ABNORMAL) Comprehensive Metabolic Panel (05/10/2025 11:20 AM EDT) Sodium 139 135 - 145 mmol/L [facility] Potassium 3.6 3.3 - 5.1 mmol/L [facility] Chloride 108 96 - 108 mmol/L [facility] Carbon Dioxide 24 22 - 29 mmol/L [facility] Anion Gap 11(L) 12 - 20 [facility] Urea Nitrogen (BUN) 11 9 - 16 mg/dL [facility] Creatinine, Serum 0.56 0.5 - 1.4 mg/dL [facility] Estimated Glomerular Filt Rate >60 [facility] Comment:Chronic Kidney Disea se: Estimated GFR < 60 mL/min/1.63x5Cfnrys Kidney Disease: Estimated GFR < 15 mL/min/1.73m2 Glucose 84 60 - 115 mg/dL [facility] Calcium 8.6 8.4 - 10.2 mg/dL [facility] Bilirubin, Total 0.5 0.0 - 1.0 mg/dL [facility] Aspartate Amino Transferase 23 5 - 31 U/L [facility] Alanine Aminotransferase 19 0 - 31 U/L [facility] Total Protein 7.1 6.5 - 8.0 g/dL [facility] Albumin Level 3.8 3.5 - 5.0 g/dL [facility] Alkaline Phosphatase 58 39 - 117 U/L [facility] Blood Venous blood specimen / Unknown 05/10/2025 11:20 AM EDT 05/10/2025 1:26 PM EDT Tiffanie Johnson MD LAB BLOOD ORDERABLES Final Result Performing Organization Address [facility] Co de Phone Number [facility] [address] [place] [address] [phone] * Hepatitis C Antibody with Reflex to HCV, RNA, Quantitative, Real-Time PCR (04/24/2024 3:00 PM EDT) Hepatitis C Antibody Nonreactive Nonreactive [facility] Comment:Antibodies to HCV no t detected; does not exclude early acuteHCV infection. Blood Venous blood specimen / Unknown 04/24/2024 3:00 PM EDT 04/24/2024 4:10 PM EDT us Tiffanie Johnson MD LAB BLOOD ORDERABLES Final Result Performing Organization Address City/[facility] Co de Phone Number [facility] [address] [place] [phone] * HIV-1/2 Antigen and Antibodies, Fourth Generation, with Reflexes (04/24/2024 3:00 PM EDT) HIV AB/AG Nonreactive Nonreactive [facility] Comment:HIV-1 p24 Ag and/or HIV-1/HIV-2 Ab not detected.A test result that is nonreactive does not exclude thepossibility of exposure to or infection with HIV-1 and/orHIV-2. Nonreactive results in this assay for individualswith prior exposure to HIV-1 and/or HIV-2 may be due toantigen and antibody levels that are below the limit ofdetection of this assay.The [employer] HIV Ag/Ab Combo assay result andsupplemental assay results should be interpreted inconjunction with the patient's clinical presentation,history and other laboratory results. If the results areinconsistent with clinical evidence, additional testing issuggested to confirm the result. Blood Venous blood specimen / Unknown 04/24/2024 3:00 PM EDT 04/24/2024 4:10 PM EDT us Tiffanie Johnson MD LAB BLOOD ORDERABLES Final Result [facility] [address] [place] [phone] * Pap Smear (04/19/2023) Pathologist [facility] Pap Negative for intraephithelial lesion or malignancy Negative for intraephithelial lesion or malignancy, Other HPV Undetected Undetected, Indeterminate, Quantitative, Not Detected Historical Provider HEALTH MAINTENANCE Final Result from Last 3 Months or Most Recently Relevant to Health Maintenance Insurance [facility] C3 HSN PARTIAL Care Teams Breakfast Server Relationship Specialty Start Date End Date Tiffanie Smart MD [address] [place] [phone] PCP - General Family Medicine 11/17/18
--- OUTSIDE RECORDS SUMMARY | 2025-05-10 14:23 | XMS_ITS | Encounter Summary ---
Author Organization [employer] Address [address] [facility] 7 [place] [address] Care Team Providers Care Mangle Press Catcher Name Role Phone Tiffanie Smart MD Primary Care Provide r Reason for Visit * Reason Comments Med Refill Encounter Details Date Type Department Care Team ([facility] st Contact Info) Description 05/07/2023 Refill [facility] [address] [place], [place] [phone] Tiffanie Smart MD [address] [place] [address] Iron deficiency anemia, unspecified iron deficiency anemia type Social History Tobacco Use Types Packs/Day Years Used Date Smoking Tobacco: Never Passive Smoke Exposure: Never Smokeless Tobacco: Never Alcohol Use Standard Drinks/Week Comments Never 0 (1 standard drink = 0.6 oz pur e alcohol) Depression Answer Date Recorded Patient Health Questionnaire-9 Score 0 02/07/2023 Housing Stability Answer Date Recorded What is your housing situation today? I have dario mcelroy 05/07/[address] you li ve. Do you have problems with any of the following? None of the above 05/07/2023 Food Insecurity Answer Date Recorded Within the past 12 months, y ou worried that your food would run out before you got money to buy more: Never True 05/07/2023 Within the past 12 months,th e food you bought just didn't last and you didn't have enough money to get more: Never True Transportation Answer Date Recorded In the past 12 months, has l ack of transportation kept you from medical appts, meetings, work or from getting things needed for daily living? No 05/07/2023 Utilities Answer Date Recorded In the past 12 months, has t he electric, gas, oil or water company threatened to shut off services in your home? No 05/07/2023 Depression Answer Date Recorded Patient Health Questionnaire-2 Score 0 02/07/2023 Comments Yes Sex and Gender Information Value Date Recorded Sex Assigned at Female 05/14/2022 10:15 AM EDT Legal Sex Female 10:15 AM EDT Gender Identity Female 05/14/2022 10:15 AM EDT Sexual Orientation Straight 05/14/2022 10 :15 AM EDT documented as of this encounter Plan of Treatment Upcoming Encounters Date Type Department Care Team (Late st Contact Info) Description 07/07/2025 3:15 PM EST Telemedicine [facility] [address] [place] [phone] Tiffanie Smart MD [address] [place] [address] documented as of this encounter Visit Diagnoses Diagnosis Iron deficiency anemia, unspecified iron deficiency anemia type documented in this encounter Additional Health Concerns Assessment Noted Time PHQ-9 Depression Total Score: 0 02/08/20 23 1:32 PM EDT documented as of this encounter Care Teams Mangle Press Catcher Relationship Specialty Start Date End Date Tiffanie Smart MD [address] [place] [phone] PCP - General Family Medicine 11/17/18 documented as of this encounter
--- OUTSIDE RECORDS SUMMARY | 2025-05-10 14:23 | XMS_ITS | Encounter Summary ---
Author Organization [employer] Address [address] [place] [address] 7 [place] [address] Care Team Providers Care Community Health Program Representative Name Role Phone Tiffanie Smart MD Primary Care Provide r Reason for Visit * Reason Onset Date Comments Chart Prep 05/06/2025 Encounter Details Date Type Department Care Team ([facility] st Contact Info) Description 05/06/2025 Telephone [facility] [address] [place], [place] [phone] Tiffanie Smart MD [address] [place] [phone] Chart Prep Social History Tobacco Use Types Packs/Day Years [...] Access Q2 Not on file 04/30/2025 Comments Unknown Sex and Gender Information Value Date Recorded Sex Assigned at Female 05/14/2022 10:15 AM EDT Legal Sex Female 10:15 AM EDT Gender Identity Female 05/14/2022 10:15 AM EDT Sexual Orientation Straight 05/14/2022 10 :15 AM EDT documented as of this encounter Miscellaneous Notes * Telephone Encounter - Andree Martinez MA - 05/06/2025 12:59 PM EDT Chart Prep Labs: done Images: done Referrals: complete-[facility] General Surgery, No show-[facility] Vaccines due: Covid, Flu, Tdap, Hep B, and HPV Screenings: LMP and PISQ Overdue care gaps: SBIRT, PHQ-9, KARLOS-7, and Disability screen documented in this encounter Plan of Treatment Upcoming Encounters Date Type Department Care Team (Late st Contact Info) Description 07/07/2025 3:15 PM EST Telemedicine [facility] [address] [place] [address] Tiffanie Smart MD [address] [place] [address] documented as of this encounter Visit Diagnoses Not on filedocumented in this encounter Additional Health Concerns Assessment Noted Time PHQ-9 Depression Total Score: 0 04/24/20 24 2:04 PM EDT documented as of this encounter Care Teams Community Health Program Representative Relationship Specialty Start Date End Date Tiffanie Smart MD [address] [place] [phone] PCP - General Family Medicine 11/17/18 documented as of this encounter
--- OUTSIDE RECORDS SUMMARY | 2025-05-10 14:23 | XMS_ITS | Encounter Summary ---
Author Organization [employer] [facility] Address [address] [place] [address] 7 [place] [address] Care Team Providers Care Special Police Officer Name Role Phone Tiffanie Smart MD Primary Care Provide r Encounter Details Date Type Department Care Team (Latest Contact Info) Description 04/03/2021 Abstract [facility] Dental, Provider, DDS Social History Tobacco Use Types Packs/Day Years Used Date Smoking Tobacco: Never Assessed Comments Unknown Sex and Gender Information Value Date Recorded Sex Assigned at Female 05/14/2022 10:15 AM EDT Legal Sex Female 10:15 AM EDT Gender Identity Female 05/14/2022 10:15 AM EDT Sexual Orientation Straight 05/14/2022 10 :15 AM EDT documented as of this encounter Plan of Treatment Upcoming Encounters Date Type Department Care Team (Late st Contact Info) Description 07/07/2025 3:15 PM EST Telemedicine [facility] [address] [place] [address] Tiffanie Smart MD [address] [place] [address] documented as of this encounter Visit Diagnoses Not on filedocumented in this encounter Care Teams Special Police Officer Relationship Specialty Start Date End Date Tiffanie Smart MD [address] [place] [address] PCP - General Family Medicine 11/17/18 documented as of this encounter
--- OUTSIDE RECORDS SUMMARY | 2025-05-10 14:23 | XMS_ITS | Encounter Summary ---
Author Organization [employer] Address [address] [facility] 7t [place] [address] Care Team Providers Care Histopath Tech Name Role Phone Tiffanie Smart MD Primary Care Provide r Encounter Details Date Type Department Care Team (Latest Contact Info) Description 05/07/2025 Travel Social History Tobacco Use Types Packs/Day Years [...] AM EDT documented as of this encounter Functional Status * Over the [...] Trouble relaxing 0 05/07/2025 2:58 PM EDT Shana Jiménez MA Being so restless that it is [...] Sanchez [place] documented as of this encounter Plan of Treatment Upcoming Encounters Date Type Department Care Team (Late st Contact Info) Description 07/07/2025 3:15 PM EST Telemedicine [facility] [address] [place] [address] Tiffanie Smart MD [address] [place] [address] documented as of this encounter Visit Diagnoses Not on filedocumented in this encounter Additional Health Concerns Assessment Noted Time PHQ-9 Depression Total Score: 0 05/07/20 2:57 PM EDT documented as of this encounter Care Teams Histopath Tech Relationship Specialty Start Date End Date Tiffanie Smart MD [address] [place] [address] PCP - General Family Medicine 11/17/18 documented as of this encounter
--- OUTSIDE RECORDS SUMMARY | 2025-05-10 14:23 | XMS_ITS | Encounter Summary ---
Author Organization [employer] Address [address] 7 [place] [address] Care Team Providers Care Band Manager Name Role Phone Tiffanie Smart MD Primary Care Provide r Reason for Visit * Reason Onset Date Comments triage 12/07/2022 Encounter Details Date Type Department Care Team ([facility] st Contact Info) Description 12/07/2022 Telephone [facility] [address] [place], [place] [phone] Tiffanie Smart MD [address] [place], [place] [phone] triage Social History Tobacco Use Types Packs/Day Years Used Date Smoking Tobacco: Never Assessed Comments Unknown Sex and Gender Information Value Date Recorded Sex Assigned at Female 05/14/2022 10:15 AM EDT Legal Sex Female 10:15 AM EDT Gender Identity Female 05/14/2022 10:15 AM EDT Sexual Orientation Straight 05/14/2022 10 :15 AM EDT documented as of this encounter Miscellaneous Notes * Telephone Encounter - Larissa Lloyd RN - 12/07/2022 12:17 PM EDT Triage call with [employer] [place] [id number] Pt reports symptoms of right lower quad pain and bladder pain. Pt reports urine is very dark yellowwith bad odor. Pt denies burning with urination , frequency, flank pain. Pt reports drinking very little liquid. Pt is advised to increase liquid to 6-8 glasses per day and Pt agrees to try to do that. Pt is advised to come to [facility] today to have urine checked to rule out UTI and Pt agreed. Protocol Used: Urinary Symptoms (Adult) Protocol-Based Disposition: See in Office or Video Visit Today Video visit not offered Positive Triage Question: * Bad or foul-smelling urine * All higher-acuity triage questions were negative Care Advice Discussed: * Reasons To Call Back - Fever occurs - Pain or burning with urination - Unable to urinate and bladder feels full - You become worse * Telephone Encounter - Sherri Arce - 12/07/2022 11:53 AM EDT Symptom: Urine Symptoms Outcome: Schedule a same-day appointment or talk to a nurse or provider today Reason: Caller denied all higher acuity questions The caller accepted this outcome documented in this encounter Plan of Treatment Upcoming Encounters Date Type Department Care Team (Late st Contact Info) Description 07/07/2025 3:15 PM EST Telemedicine [facility] [address] [place] [address] Tiffanie Smart MD [address] [place] [address] documented as of this encounter Visit Diagnoses Not on filedocumented in this encounter Care Teams Band Manager Relationship Specialty Start Date End Date Tiffanie Smart MD [address] [place] [address] PCP - General Family Medicine 11/17/18 documented as of this encounter
--- OUTSIDE RECORDS SUMMARY | 2025-05-10 14:23 | XMS_ITS | Encounter Summary ---
Author Organization [employer] Address [address] [place] [address] [address] [place] [address] Care Team Providers Care Auxiliary Powerplant Operator Name Role Phone Tiffanie Smart MD Primary Care Provide r Reason for Visit * Reason Onset Date Comments Referral 02/20/2023 Encounter Details Date Type Department Care Team ([facility] st Contact Info) Description 02/20/2023 Telephone [facility] [address] [place], [place] [phone] Tiffanie Smart MD [address] [place] [address] Referral Social History Tobacco Use Types Packs/Day Years Used Date Smoking Tobacco: Never Passive Smoke Exposure: Never Smokeless Tobacco: Never Depression Answer Date Recorded Patient Health Questionnaire-9 Score 0 02/07/2023 Depression Answer Date Recorded Patient Health Questionnaire-2 Score 0 02/07/2023 Comments Yes Sex and Gender Information Value Date Recorded Sex Assigned at Female 05/14/2022 10:15 AM EDT Legal Sex Female 10:15 AM EDT Gender Identity Female 05/14/2022 10:15 AM EDT Sexual Orientation Straight 05/14/2022 10 :15 AM EDT documented as of this encounter Miscellaneous Notes * Telephone Encounter - Sherri Arce - 02/20/2023 1:56 PM EDT Tc from pt requesting a referral to a OBGYN . States did 2 home test and came back positive . Pt would like to go to [facility] documented in this encounter Plan of Treatment Upcoming Encounters Date Type Department Care Team (Late st Contact Info) Description 07/07/2025 3:15 PM EST Telemedicine [facility] [address] [place] [address] Tiffanie Smart MD [address] [place] [address] documented as of this encounter Visit Diagnoses Not on filedocumented in this encounter Additional Health Concerns Assessment Noted Time PHQ-9 Depression Total Score: 0 02/08/20 23 1:32 PM EDT documented as of this encounter Care Teams Auxiliary Powerplant Operator Relationship Specialty Start Date End Date Tiffanie Smart MD [address] [place] [address] PCP - General Family Medicine 11/17/18 documented as of this encounter
--- OUTSIDE RECORDS SUMMARY | 2025-05-10 14:23 | XMS_ITS | Encounter Summary ---
Author Organization [facility] Address [address] [place] [address] [address] [place] [address] Care Team Providers Care Fishing Instructor Name Role Phone Tiffanie Smart MD Primary Care Provide r Encounter Details Date Type Department Care Team (Late Contact Info) Description 07/19/2022 Telephone [facility] [address] [place] [address] [phone] Tiffanie Smart MD [address] [place] [address] [phone] Social History Tobacco Use Types Packs/Day Years [...] 07/07/2025 3:15 PM EST Telemedicine [facility] [address] [place] [address] [phone] Tiffanie Smart MD [address] [place] [address] [phone] documented as of this encounter Visit Diagnoses Not on filedocumented in this encounter Care Teams Fishing Instructor Relationship Specialty Start Date End Date Tiffanie Smart MD [address] [place] [address] [phone] PCP - General Family Medicine 11/17/18 documented as of this encounter
[2025-05-10 14:24] LABS: HIV Num 1 0.04 S/CO (0.00-0.99); ~HepC Num1 0.13 S/CO (0.00-0.79); ~Hepatitis C Antibody Nonreactive (Nonreactive)
--- OUTSIDE RECORDS SUMMARY | 2025-05-10 14:24 | XMS_ITS | Encounter Summary ---
Author Organization [employer] Address [address] [facility] [address] [address] [place] [address] Care Team Providers Care Border Patrol Officer Name Role Phone Tiffanie Smart MD Primary Care Provide r Reason for Visit * Reason Comments Med Refill Encounter Details Date Type Department Care Team ([facility] st Contact Info) Description 05/15/2023 Refill [facility] [address] [place] [address] Jacqueline Pickard FNP Social History Tobacco Use Types Packs/Day Years [...] Info) Description 07/07/2025 3:15 PM EST Telemedicine [facility] [address] [place] [address] Tiffanie Smart MD [address] [place] [address] documented as of this encounter Visit Diagnoses Not on filedocumented in this encounter Additional Health Concerns Assessment Noted Time PHQ-9 Depression Total Score: 0 02/08/20 23 1:32 PM EDT documented as of this encounter Care Teams Border Patrol Officer Relationship Specialty Start Date End Date Tiffanie Smart MD [address] [place] [address] [phone] PCP - General Family Medicine 11/17/18 documented as of this encounter
== END 2025-05-10 11:17 | disposition home or self-care (01) ==
LOC: HO.HHCL 11:16
PROVIDERS: PCP Internal Medicine; Visit Provider Internal Medicine
DX: Z00.00 Encounter for general adult medical examination without abnormal findings (principal); L65.9 Nonscarring hair loss, unspecified; Z11.4 Encounter for screening for human immunodeficiency virus [HIV]; Z11.59 Encounter for screening for other viral diseases
CPT/HCPCS: 36415; 80053; 80061; 82306; 83036; 84443; 85025; 86803; 87389